=== PATIENT | female | born 1990 | race African-American/Black ===

== ENCOUNTER 2016-12-11 15:15 | Emergency (ER) | payer MEDICAID, OTHER ==
[~2016-12-11] VITALS: Ht 167.6 cm; Wt 75.3 kg
[~2016-12-11 15:15] MED LIST: AMOX500T PO; IBUP-232 PO
[2016-12-11 15:23] VITALS: BP 132/87; PULSE 89; RESP 16; TEMP 98.4; O2SAT 99
[2016-12-11] MEDS ORDERED: MOTR200T4 PO (15:29)
[2016-12-11] MEDS ORDERED: MAGICADU2 SWISH-SWAL (15:38)
[2016-12-11] MEDS ORDERED: IBUP800T23 PO (15:38)
[2016-12-11] MEDS ORDERED: PENI500T PO (15:38)
[2016-12-11] MEDS ORDERED: IBUPROFEN 800 MG TAB PO ONE (15:45)
[2016-12-11] MEDS ORDERED: LIDOCAINE 1%/EPINEPHrine 1:100,000 SOLN 20 ML VIAL INFIL ONE (15:45)
--- NOTE | 2016-12-11 15:45 | PD ---
HPI Chief Complaint: Oral / Dental Pain or Problem Time Seen by Provider: 15:41 Travel History International Travel<30 days: No Contact w/Intl Traveler<30days: No Traveled to known affect area: No History of Present Illness HPI 26-year-old female presents to the ED for evaluation of 2 day history of right lower dental pain. Patient thinks that it is "my wisdom tooth." She endorses dental cavity in the area. The pain radiates to the right ear. She denies fever, chills, difficulties open her mouth, difficulty swallowing her own secretions. She does not have a dentist. She took 600 mg ibuprofen before arrival with no improvement of symptoms. NKDA. PFSH Past Medical History Medical History: Denies Significant Hx Diminished Hearing: No Tetanus Vaccination: > 5 Years Influenza Vaccination: No ?: Not LMP: "NOW" : 3 Para: 1 Miscarriage: 1 Past Surgical History Surgical History: No Previous Surgery Section: Yes Tonsillectomy: Yes Social History Alcohol Use: Yes (OCCASIONAL) Tobacco Use: No Substance Use: No Allergies-Medications (Allergen,Severity, Reaction): Coded Allergies: No Known Allergies (Unverified , 12/11/16) Reported Meds & Prescriptions Reported Meds & Active Scripts Active Ibuprofen 800 Mg Tab 800 Mg PO Q8H Magic Mouthwash Adult Liq (Multi-Ingredient Mouthwash/Gargle) 120 Ml Susp 10 Ml SWISH-SWAL ACHS Each 5mL contains: Nystatin 200,000units, Diphenhydramine 4.25mg, Viscous Lidocaine 10mg, Vernon syrup 0.8 mL Penicillin V Potassium 500 Mg Tab 500 Mg PO Q6H 7 Days Reported Motrin Ib (Ibuprofen) 200 Mg Tab 600 Mg PO Q6H PRN Review of Systems Except as stated in HPI: all other systems reviewed are Neg Physical Exam Narrative GENERAL: Well-nourished, well-developed tearful black female in no acute distress. SKIN: Warm and dry. Mild swelling of the right lower cheek. HEAD: Normocephalic. Atraumatic. EYES: No scleral icterus. No injection or drainage. PERRLA. EOMI. ENT: Pearly weems tympanic membranes bilaterally. Nasal mucosa is moist. Oropharynx without erythema, edema or exudate. Uvula midline. Airway patent. Floor of the mouth is soft. DENTAL: No loose or chipped teeth. No malocclusion. Tooth #32 crowds tooth # 31. Tooth #31 has a dental caries. The surrounding mucosa is erythematous, tender. No fluctuance noted. NECK: Supple, trachea midline. No JVD or lymphadenopathy. CARDIOVASCULAR: Regular rate and rhythm without murmurs, gallops, or rubs. No carotid bruits. 2+ DP and radial pulses bilaterally. RESPIRATORY: Breath sounds clear and equal bilaterally. No accessory muscle use. GASTROINTESTINAL: Abdomen soft, non-tender, nondistended. + Bowel sounds MUSCULOSKELETAL: No cyanosis, or edema. Full, active range of motion. Strength 5/5. Neurovascularly intact. BACK: Nontender without obvious deformity. No CVA tenderness. Data Data Last Documented VS Vital Signs Date Time Temp Pulse Resp B/P Pulse Ox O2 Delivery O2 Flow Rate FiO2 12/11/16 15:23 98.4 89 16 132/87 99 Orders Lidocai-Epi 1%-1:100,000 Inj (Xylocaine- (12/11/16 15:45) MDM Medical Decision Making Medical Screen Exam Complete: Yes Emergency Medical Condition: Yes Differential Diagnosis Dentalgia versus dental caries versus dental abscess versus deep neck space infection versus other Narrative Course 26-year-old female presents to the ED for evaluation of 2 day history of right lower dental pain. Patient thinks that it is "my wisdom tooth." She endorses dental cavity in the area. The pain radiates to the right ear. She denies fever, chills, difficulties open her mouth, difficulty swallowing her own secretions. She does not have a dentist. She took 600 mg ibuprofen before arrival with no improvement of symptoms. Vitals reviewed. Physical exam reveals a nontoxic-appearing, tearful black female in no acute distress. ENT exam is unremarkable. Tooth #2 crowds tooth #31. Tooth #31 is a dental caries. The surrounding mucosa is erythematous and tender. No fluctuance is noted. Patient drove herself to the emergency room and does not have a ride home. I attempted an inferior alveolar dental block and injected approximately 1-1/2 cc of 1% lidocaine with epinephrine into the right pterygomandibular triangle. However, the patient recoiled and swatted my hand away before I was able to complete the injection. She is prescribed 800 mg ibuprofen 3 times a day, Magic mouthwash when necessary and penicillin VK 500 mg 4 times a day 7 days. She indicated understanding of instructions and is agreeable with the care plan. The patient is stable and discharged home. Diagnosis Primary Impression: Dentalgia Additional Impressions: Dental caries Dental abscess Referrals: Dentist Patient Instructions: Dental Abscess (ED), General Instructions Additional Instructions: Rest, hydrate. Take all antibiotics as prescribed, even if symptoms resolve. 800 mg ibuprofen 3 times a day to reduce pain and inflammation. Magic mouthwash as needed for pain. Follow-up with a dentist. Return to the ED for any urgent or emergent medical condition. Med/Other Pt SpecificInfo: Prescription(s) given Scripts Ibuprofen 800 Mg Yps535 Mg PO Q8H #20 TAB Ref 0 Prov:Gavino Ramirez MD 12/11/16 Diunchok-Kitnkuezbnsxxrt-Clbtqbowv Liq (Magic Mouthwash Adult Liq)120 Ml Susp10 Ml SWISH-SWAL ACHS #120 ML Ref 0 Each 5mL contains: Nystatin 200,000units, Diphenhydramine 4.25mg, Viscous Lidocaine 10mg, Vernon syrup 0.8 mL Prov:Gavino Ramirez MD 12/11/16 Penicillin V Potassium 500 Mg Uui439 Mg PO Q6H 7 Days Ref 0 Prov:Gavino Ramirez MD 12/11/16 Disposition: 01 DISCHARGE HOME Condition: Stable Lyndsey Telles Dec 11, 2016 15:45
== END 2016-12-11 16:02 | disposition home or self-care (01) ==
LOC: PHEFT 15:15
DX: K04.7 Periapical abscess without sinus (principal); K08.89 Other specified disorders of teeth and supporting structures; K02.9 Dental caries, unspecified
CPT/HCPCS: 64400

== ENCOUNTER 2017-03-06 14:26 | Emergency (ER) | payer MEDICAID ==
[~2017-03-06] VITALS: Ht 165.1 cm; Wt 78.4 kg
[~2017-03-06 14:26] MED LIST changes: -AMOX500T PO; -IBUP-232 PO; +IBUP800T23 PO; +MAGICADU2 SWISH-SWAL; +MOTR200T4 PO; +PENI500T PO
[2017-03-06 14:45] VITALS: BP 141/74; PULSE 93; RESP 16; TEMP 98.4; O2SAT 98
--- NOTE | 2017-03-06 14:51 | PD ---
HPI Chief Complaint: Abdominal Pain Time Seen by Provider: 14:35 Travel History International Travel<30 days: No Contact w/Intl Traveler<30days: No Traveled to known affect area: No History of Present Illness HPI The patient was seen and examined in the presence of the nurse. This patient complains of some central pelvic cramping. No vaginal discharge or bleeding. No vomiting or fever. She took a home test that was positive. She's missed her last 2 menstrual periods. No alleviating factors. Duration 2 days PFSH Past Medical History Medical History: Denies Significant Hx Diminished Hearing: No Tetanus Vaccination: > 5 Years Influenza Vaccination: No ?: Not : 3 Para: 2 Miscarriage: 0 Past Surgical History Section: Yes Tonsillectomy: Yes Social History Alcohol Use: Yes (OCCASIONAL) Tobacco Use: No Substance Use: No Allergies-Medications (Allergen,Severity, Reaction): Coded Allergies: No Known Allergies (Unverified , 03/06/17) Reported Meds & Prescriptions Reported Meds & Active Scripts Active No Active Prescriptions or Reported Medications Review of Systems General / Constitutional: No: Fever Eyes: No: Visual changes HENT: No: Headaches Cardiovascular: No: Chest Pain or Discomfort Respiratory: No: Shortness of Breath Gastrointestinal: No: Abdominal Pain Genitourinary: Positive: Pelvic Pain, No: Dysuria Musculoskeletal: No: Pain Skin: No Rash Neurologic: No: Weakness Psychiatric: No: Depression Endocrine: No: Polydipsia Hematologic/Lymphatic: No: Easy Bruising Physical Exam Narrative GENERAL: Well-nourished, well-developed patient in no apparent distress. SKIN: Focused skin assessment reveals no rash and nodules. Skin is Warm and dry. HEAD: Atraumatic. Normocephalic. EYES: Pupils equal and round. No scleral icterus. No injection or drainage. ENT: No nasal bleeding or discharge. Mucous membranes pink and moist. NECK: Trachea midline. No JVD. CARDIOVASCULAR: Regular rate and rhythm. No murmur appreciated. RESPIRATORY: No accessory muscle use. Clear to auscultation. Breath sounds equal bilaterally. GASTROINTESTINAL: Abdomen soft, non-tender, nondistended. Hepatic and splenic margins not palpable. MUSCULOSKELETAL: No obvious deformities. No clubbing. No cyanosis. No edema. NEUROLOGICAL: Awake and alert. No obvious cranial nerve deficits. Motor grossly within normal limits. Normal speech. PSYCHIATRIC: Appropriate mood and affect; insight and judgment normal. Pelvic: Cervix closed without cervical motion tenderness. No adnexal mass appreciated. No blood or discharge Data Data Last Documented VS Vital Signs Date Time Temp Pulse Resp B/P Pulse Ox O2 Delivery O2 Flow Rate FiO2 03/06/17 14:48 03/06/17 14:45 98.4 93 16 98 Room Air Orders Urinalysis - C+S If Indicated (03/06/17 14:31) Labs Laboratory Tests Test 03/06/17 14:40 Urine Color YELLOW Urine Turbidity CLEAR Urine pH 7.0 Urine Specific [place] 1.020 Urine Protein NEG mg/dL Urine Glucose (UA) NEG mg/dL Urine Ketones NEG mg/dL Urine Occult Blood NEG Urine Nitrite NEG Urine Bilirubin NEG Urine Leukocyte Esterase NEG Urine WBC 0-2 /hpf Urine Squamous Epithelial 6-8 /hpf Cells Urine Bacteria RARE /hpf Urine Mucus FEW /lpf Microscopic Urinalysis Comment CULT NOT INDICATED MDM Medical Decision Making Medical Screen Exam Complete: Yes Emergency Medical Condition: Yes Medical Record Reviewed: Yes Differential Diagnosis Ectopic, PID, miscarriage Narrative Course I have reviewed the patient's electronic medical record. I did a bedside transabdominal ultrasound which reveals an intrauterine fetus with good heartbeat I have ruled out ectopic . Urinalysis does not show infection Abdomen is soft and benign and nontender No clinical suspicion of emergent intra-abdominal process. She is to call her OB physician when she gets home to set up a follow-up visit and care Diagnosis Primary Impression: Pelvic pain affecting in first trimester, antepartum Additional Instructions: Follow-up with OB physician Med/Other Pt SpecificInfo: Other Scripts No Active Prescriptions or Reported Meds Disposition: 01 DISCHARGE HOME Condition: Stable Gonsalo Yip MD Mar 06, 2017 14:51
[2017-03-06 15:01] LABS: BLOOD, URINE NEG (NEG); GLUCOSE,URINE NEG (NEG); KETONE, URINE NEG (NEG); NITRITE,URINE NEG (NEG)
[2017-03-06 15:14] LABS: BACTERIA, URINE RARE /hpf; COMMENT (UR) CULT NOT INDICATED; CULTURE IF INDICATED CULT NOT INDICATED; MUCUS URINE FEW /lpf (OCC); URINE COLOR YELLOW (YELLW/STRAW); WBC, URINE 0-2 /hpf (0-5)
== END 2017-03-06 15:29 | disposition home or self-care (01) ==
LOC: PHED 14:26
DX: O26.891 Other specified pregnancy related conditions, first trimester (principal); R10.2 Pelvic and perineal pain; Z3A.00 Weeks of gestation of pregnancy not specified
CPT/HCPCS: 81001; 99284

== ENCOUNTER 2017-08-23 20:52 | Emergency (ER) | payer MEDICAID ==
[~2017-08-23] VITALS: Ht 167.6 cm; Wt 90.7 kg
[2017-08-23 21:49] LABS: BILIRUBIN, URINE NEG (NEG); BLOOD, URINE NEG (NEG); GLUCOSE,URINE TRACE mg/dL (NEG); KETONE, URINE NEG (NEG); MUCUS URINE FEW /lpf (OCC); NITRITE,URINE NEG (NEG); PH, URINE 6.5 (5.0-8.5); SQUAMOUS EPITHELIAL CELL URINE 4 /hpf (0-5); URINE COLOR YELLOW (YELLW/STRAW); URINE LEUKOCYTE ESTERASE NEG (NEG)
--- NOTE | 2017-08-23 21:52 | PD ---
HPI Chief Complaint 31 weeks and 3 days vaginal pressure 1 day Date Seen: Aug 23, 2017 Time Seen: 21:38 Travel History International Travel<30 Days: No Contact w/Intl Traveler<30Days: No Known Affected Area: No History of Present Illness HPI Pt is a 27 yo at 31 weeks and 1 day. EDC 10-10-2017. Care with Dr Foreman. Pt c/o vaginal pressure but no pain. Denies dysuria . Active movements. No vaginal bleeding or leaking. No uterine contractions. Pt has low back pain. Weeks Gestation: 31 Para: 2 : 3 History Past Medical History Medical History: Denies Significant Hx Obstetric History Obstetric History C Section x 2 Past Surgical History Narrative Surgical tonsillectomy in childhood. Family History Family History: Negative Social History Alcohol Use: No Tobacco Use: No Substance Abuse: No Allergies-Medications (Allergen,Severity, Reaction): Coded Allergies: No Known Allergies (Unverified Adverse Reaction, Unknown, 08/23/17) Home Meds No Active Prescriptions or Reported Meds Review of Systems Except as stated in HPI: all other systems reviewed are Neg Musculoskeletal: Pain (low back) Physical Exam Narrative GENERAL: Well-nourished, well-developed patient. SKIN: Warm and dry. HEAD: Normocephalic and atraumatic. EYES: No scleral icterus. No injection or drainage. ENT: No nasal drainage noted. Mucous membranes pink. Airway patent. NECK: Supple, trachea midline. No JVD. CARDIOVASCULAR: Regular rate and rhythm without murmurs, gallops, or rubs. RESPIRATORY: Breath sounds equal bilaterally. No accessory muscle use. BREASTS: Bilateral exam showed no masses , no retractions, no nipple discharge. ABDOMEN/GI: Abdomen soft, non-tender, bowel sounds present, no rebound, no guarding Gravid to [31] weeks size Fundal Height: [31cm] GENITOURINARY: External Genitalia: intact and normal in appearance BUS glands: [wnl] Cervix: [soft] Dilatation: [closed] Effacement: [long] Station: [-3] Presentation: [vertex] Membranes: [intact] Uterine Contractions: [none] FHT's: Category: [1] Baseline: [130s] Reactive: [-] Variability: [moderate] Decels: [-] EXTREMITIES: No cyanosis or edema. BACK: Nontender without obvious deformity. No CVA tenderness. NEUROLOGICAL: Awake and alert. Motor and sensory grossly within normal limits. Five out of 5 muscle strength in all muscle groups. Normal speech. Data Data Vital Signs Reviewed: Yes [facility] Medical Record Reviewed: Yes Plan 27 yo at 31 weeks and 1 day. Presents with c/o vaginal pressure. Cervix closed and long. No CVA tenderness. FFN and UA pending UA wnl, fFN wnl. Pt advised to use support brace to relieve pressure on back and pelvis. Diagnosis Diagnosis: Primary Impression: 31 weeks gestation of Additional Impression: Vaginal discomfort Disposition: DISCHARGE HOME Condition: Good Scripts No Active Prescriptions or Reported Meds Marquis Quinn MD Aug 23, 2017 21:52
[2017-09-08] MEDS ORDERED: VENO20IN IV (12:39)
== END 2017-08-23 22:30 | disposition home or self-care (01) ==
LOC: HOBED 20:52
DX: O26.893 Other specified pregnancy related conditions, third trimester (principal); R10.2 Pelvic and perineal pain; M54.5 Low back pain; Z3A.31 31 weeks gestation of pregnancy
CPT/HCPCS: 59025; 81001; 82731

== ENCOUNTER 2017-10-05 10:33 | Inpatient (IN) | payer MEDICAID ==
[2017-10-05] VITALS (18 sets, daily range): BP systolic 91–118; BP diastolic 57–68; PULSE 67–85; RESP 16–20; TEMP 97.4–97.8; O2SAT 96–100
[~2017-10-05] VITALS: Ht 167.6 cm; Wt 92.0 kg
[2017-10-05] MEDS ORDERED: MORPHINE SULFATE PF 5 MG/10 ML VIAL ONE (11:15)
[2017-10-05] MEDS ORDERED: ACETAMINOPHEN 1000 MG/100 ML 100 ML IV ONE (11:15)
[2017-10-05] MEDS ORDERED: LACTATED RINGER'S 1000 ML INJ 1,000 ML IV ONE ×2 (11:33→12:00)
[2017-10-05] MEDS ORDERED: LACTATED RINGER'S 1000 ML IV SCH (11:45)
[2017-10-05] MEDS ORDERED: CITRIC ACID-SODIUM CITRATE LIQ 30 ML UDC PO SCH ×2 (11:45→13:15)
[2017-10-05] MEDS ORDERED: ceFAZolin 2 GM PREMIX 50 ML IV SCH ×2 (11:45→12:45)
[2017-10-05] MEDS ORDERED: LACTATED RINGER'S 1000 ML IV ONE (11:45)
[2017-10-05] MEDS ORDERED: EPINEPHrine HCL (1:1000) 1 MG/ML VIAL IV ONE (12:00)
[2017-10-05] MEDS ORDERED: ONDANSETRON HCL 4 MG/2 ML VIAL IV ONE (12:00)
[2017-10-05] MEDS ORDERED: PHENYLEPH/NS 1000 MCG/10 ML SYR IV ONE (12:00)
[2017-10-05] MEDS ORDERED: DEXAMETHASONE SOD PHOS 4 MG/ML VIAL IV ONE (12:00)
[2017-10-05] MEDS ORDERED: OXYTOCIN 10 UNIT/ML AMP IV ONE (12:00)
[2017-10-05] MEDS ORDERED: LACTATED RINGER'S 1000 ML INJ 1,000 ML IV SCH ×2 (12:03→19:06)
[2017-10-05 12:15] LABS: AUTOMATED NEUTROPHIL # 4.8 TH/MM3 (1.8-7.7); BASOPHIL % 0.2 % (0.0-2.0); EOSINOPHIL % 0.6 % (0.0-4.0); HEMATOCRIT 35.7 % (35.0-46.0); HEMOGLOBIN 11.7 GM/DL (11.6-15.3); LYMPH % 22.8 % (9.0-44.0); LYMPHOCYTE # 1.6 TH/MM3 (1.0-4.8); MEAN CELL VOLUME 70.2 FL (80.0-100.0); MEAN CORPUSCULAR HEMOGLOBIN 23.1 PG (27.0-34.0); MEAN CORPUSCULAR HGB CONC 32.9 % (32.0-36.0); MEAN PLATELET VOLUME 8.9 FL (7.0-11.0); MONO % 8.1 % (0.0-8.0); MONOCYTE # 0.6 TH/MM3 (0-0.9); NEUT % 68.3 % (16.0-70.0); PLATELET COUNT 167 TH/MM3 (150-450); RED BLOOD COUNT 5.08 MIL/MM3 (4.00-5.30); RED CELL DISTRIBUTION WIDTH 28.2 % (11.6-17.2)
--- NOTE | 2017-10-05 12:21 | HHI.HP ---
HPI Chief Complaint Repeat . Date Seen: Oct 05, 2017 Travel History International Travel<30 Days: No Contact w/Intl Traveler<30Days: No Known Affected Area: No History of Present Illness HPI Patient is a 27 year old at 39-2/7 weeks gestation who presents today for repeat . She is starting to feel contractions but denies any vaginal bleeding, discharge, gush or leaking of fluid. Positive movement. History Past Medical History Medical History: Denies Significant Hx Obstetric History Obstetric History x 2 Past Surgical History Narrative Surgical x 2 Tonsillectomy Family History Family History: Negative Social History Alcohol Use: No Tobacco Use: No Substance Abuse: No Allergies-Medications (Allergen,Severity, Reaction): Coded Allergies: No Known Allergies (Verified Allergy, Unknown, 09/08/17) Review of Systems Except as stated in HPI: all other systems reviewed are Neg General / Constitutional: No: Fever, Chills Eyes: No: Blurred Vision, Visual changes HENT: No: Headaches Cardiovascular: No: Chest Pain or Discomfort Respiratory: No: Cough, Short of Breath Gastrointestinal: No: Nausea, Vomiting, Abdominal Pain Genitourinary: Pelvic Pain, No: Dysuria, Hematuria, Discharge, Vaginal Bleeding Musculoskeletal: No: Edema Neurologic: No: Headache Psychiatric: No: Substance Abuse Physical Exam Narrative GENERAL: Well-nourished, well-developed patient. SKIN: Warm and dry. HEAD: Normocephalic and atraumatic. EYES: No scleral icterus. No injection or drainage. ENT: No nasal drainage noted. Mucous membranes pink. Airway patent. NECK: Supple, trachea midline. No JVD. CARDIOVASCULAR: Regular rate and rhythm without murmurs, gallops, or rubs. RESPIRATORY: Breath sounds equal bilaterally. No accessory muscle use. ABDOMEN/GI: Abdomen soft, non-tender, bowel sounds present, no rebound, no guarding Gravid to 39 weeks size GENITOURINARY: Uterine Contractions: q3-5min FHT's: Category: I Baseline: 140 Reactive: + Variability: moderate Decels: none EXTREMITIES: No cyanosis or edema. BACK: Nontender without obvious deformity. No CVA tenderness. NEUROLOGICAL: Awake and alert. Motor and sensory grossly within normal limits. Normal speech. Caprini VTE Risk Assessment Caprini VTE Risk Assessment: No/Low Risk (score <= 1) Caprini Risk Assessment Model Point Value = 1 Point Value = 2 Point Value = 3 Point Value = 5 Age 41-60 Minor surgery BMI > 25 kg/m2 Swollen legs Varicose veins or History of unexplained or recurrent spontaneous Oral contraceptives or hormone replacement Sepsis (< 1 month) Serious lung disease, including pneumonia (< 1 month) Abnormal pulmonary function Acute myocardial infarction Congestive heart failure (< 1 month) History of inflammatory bowel disease Medical patient at bed rest Age 61-74 Arthroscopic surgery Major open surgery (> 45 min) Laparoscopic surgery (> 45 min) Malignancy Confined to bed (> 72 hours) Immobilizing plaster cast Central venous access Age >= 75 History of VTE Family history of VTE Factor V Leiden Prothrombin [id number] Lupus anticoagulant Anticardiolipin antibodies Elevated serum homocysteine Heparin-induced thrombocytopenia Other congenital or acquired thrombophilia Stroke (< 1 month) Elective arthroplasty Hip, pelvis, or leg fracture Acute spinal cord injury (< 1 month) Prophylaxis Regimen Total Risk Factor Score Risk Level Prophylaxis Regimen 0-1 Low Early ambulation 2 Moderate Order ONE of the following: *Sequential Compression Device (SCD) *Heparin 5000 units SQ BID 3-4 Higher Order ONE of the following medications: *Heparin 5000 units SQ TID *Enoxaparin/Lovenox 40 mg SQ daily (WT < 150 kg, CrCl > 30 mL/min) *Enoxaparin/Lovenox 30 mg SQ daily (WT < 150 kg, CrCl > 10-29 mL/min) *Enoxaparin/Lovenox 30 mg SQ BID (WT < 150 kg, CrCl > 30 mL/min) AND/OR *Sequential Compression Device (SCD) 5 or more Highest Order ONE of the following medications: *Heparin 5000 units SQ TID (Preferred with Epidurals) *Enoxaparin/Lovenox 40 mg SQ daily (WT < 150 kg, CrCl > 30 mL/min) *Enoxaparin/Lovenox 30 mg SQ daily (WT < 150 kg, CrCl > 10-29 mL/min) *Enoxaparin/Lovenox 30 mg SQ BID (WT < 150 kg, CrCl > 30 mL/min) AND *Sequential Compression Device (SCD) Data Data Vital Signs Reviewed: Yes Orders Orders Morphine Pf Inj (Duramorph Pf 0.5 Mg/Ml (10/05/17 11:15) Acetaminophen 1000 Mg/100 Ml (Ofirmev 10 (10/05/17 11:15) Lactated Ringer's 1000 Ml Inj (Lr 1000 M (10/05/17 11:45) Lactated Ringer's 1000 Ml Inj (Lr 1000 M (10/05/17 11:45) Citric Acid-Sodium Citrate Liq (Bicitra (10/05/17 11:45) Admit To Inpatient (10/05/17 ) Code Status (10/05/17 11:33) Vital Signs (Adult) .ON ADMISSION (10/05/17 11:33) Activity Oob Ad Radha (10/05/17 11:33) Heart (10/05/17 11:33) Urinary Catheter Management STACI.Q8H (10/05/17 11:33) ^ Preps (10/05/17 11:33) Cefazolin 2 Gm Premix (Ancef 2 Gm Premix (10/05/17 11:45) Scd / Neil / Foot Pump STACI.QSHIFT (10/05/17 11:33) ^ Ultrasound For Locatio (10/05/17 11:33) Diet Npo (10/05/17 Lunch) Lactated Ringer's 1000 Ml Inj (Lr 1000 M (10/05/17 11:33) Lactated Ringer's 1000 Ml Inj (Lr 1000 M (10/05/17 12:03) Cefazolin 2 Gm Premix (Ancef 2 Gm Premix (10/05/17 12:45) Citric Acid-Sodium Citrate Liq (Bicitra (10/05/17 13:15) Type And Screen (10/05/17 11:33) Complete Blood Count With Diff (10/05/17 11:33) Urinalysis - C+S If Indicated (10/05/17 11:33) Drug Screen, Random Urine (10/05/17 11:33) Inpatient Certification (10/05/17 ) Specimen To Be Collected PRN (10/05/17 11:33) Specimen To Be Collected PRN (10/05/17 11:33) Group B Strep: Positive Labs Laboratory Tests Test 10/05/17 11:00 10/05/17 11:33 White Blood Count 7.0 Red Blood Count 5.08 Hemoglobin 11.7 Hematocrit 35.7 Mean Corpuscular Volume 70.2 Mean Corpuscular Hemoglobin 23.1 Mean Corpuscular Hemoglobin Concent 32.9 Red Cell Distribution Width 28.2 Platelet Count 167 Mean Platelet Volume 8.9 Neutrophils (%) (Auto) 68.3 Lymphocytes (%) (Auto) 22.8 Monocytes (%) (Auto) 8.1 Eosinophils (%) (Auto) 0.6 Basophils (%) (Auto) 0.2 Neutrophils # (Auto) 4.8 Lymphocytes # (Auto) 1.6 Monocytes # (Auto) 0.6 Eosinophils # (Auto) 0.0 Basophils # (Auto) 0.0 CBC Comment AUTO DIFF Assessment/Plan Assessment and Plan 27 year old at 39-2/7 weeks gestation. 1. IUP- Category I tracing, reassuring. 2. Repeat - previous x 2 3. GBS positive dw Gretchen Medrano MD, R3 Oct 05, 2017 12:21
[2017-10-05 12:24] LABS: BILIRUBIN, URINE NEG (NEG); BLOOD, URINE NEG (NEG); GLUCOSE,URINE NEG (NEG); KETONE, URINE 40 mg/dL (NEG); MUCUS URINE FEW /lpf (OCC); NITRITE,URINE NEG (NEG); SQUAMOUS EPITHELIAL CELL URINE 4 /hpf (0-5); URINE COLOR YELLOW (YELLW/STRAW); URINE LEUKOCYTE ESTERASE TRACE (NEG)
[2017-10-05] MEDS ORDERED: EPIDURAL-DIPHENHYDRAMINE HCL 50 MG/ML VIAL IV PUSH PRN (12:38)
[2017-10-05] MEDS ORDERED: EPIDURAL-DIPHENHYDRAMINE HCL 50 MG CAP PO PRN (12:38)
[2017-10-05] MEDS ORDERED: EPIDURAL-NALOXONE HCL 0.4 MG/ML AMP IV PUSH PRN (12:38)
[2017-10-05] MEDS ORDERED: EPIDURAL-DO NOT ADMINISTER ANTICOAGULANTS PRN (12:38)
[2017-10-05] MEDS ORDERED: EPIDURAL-NO SYSTEMIC NARCOTICS PRN (12:38)
[2017-10-05 12:52] LABS: OVALOCYTES 1+ (NORMAL); TEARDROP RBCS 1+ (NORMAL)
[2017-10-05 12:53] LABS: ACANTHOCYTES OCC (NORMAL)
[2017-10-05] MEDS: ACETAMINOPHEN 1000 MG/100 ML 100 ML IV SCH ×2 (13:00→20:47)
[2017-10-05] MEDS ORDERED: OXYTOCIN 30 UNITS-500ML PREMIX 500 ML IV ONE (14:15)
[2017-10-05] MEDS ORDERED: ZOLPIDEM TARTRATE 5 MG TAB PO PRN (14:15)
[2017-10-05] MEDS ORDERED: ONDANSETRON HCL 4 MG/2 ML VIAL IV PUSH PRN (14:15)
[2017-10-05] MEDS ORDERED: ACETAMINOPHEN 325 MG TAB PO PRN (14:15)
[2017-10-05] MEDS ORDERED: SODIUM CHLORIDE 0.9% FLUSH 10 ML FLUSH IV FLUSH PRN (14:15)
[2017-10-05] MEDS ORDERED: IBUPROFEN 600 MG TAB PO PRN (14:15)
--- NOTE | 2017-10-05 14:20 | PD.OP ---
Operative Report Date of Surgery: Oct 05, 2017 Preoperative Diagnosis: Postoperative Diagnosis: Procedure: Repeat Low Transverse Section Anesthesia: Spinal Surgeon: Edgar Foreman Production Estimator(s): Jessica Juan and Lalitha Rogers Resident Surgeon: Gretchen Liu Operation and Findings: PREOPERATIVE DIAGNOSIS 1. Intrauterine at 39-2/7 weeks gestation. 2. Repeat Section POSTOPERATIVE DIAGNOSIS 1. Intrauterine at 39-2/7 weeks gestation. 2. Repeat Section PROCEDURE Repeat low transverse section. FINDINGS: male weighing 3760g. Apgars 8/8. Normal fallopian tubes, ovaries, and uterus. ANESTHESIA Spinal. SURGEON Edgar Foreman MD CO-SURGEON Olimpia Liu MD, R3 COMPLICATIONS None. COUNTS Correct. ESTIMATED BLOOD LOSS 600 cc. FLUIDS Crystalloids. CONDITION The patient tolerated the procedure well and went to the recovery room in good condition. PROCEDURE IN DETAIL Under an adequate level of anesthesia, she was prepped and draped for abdominal surgery. The previous scar was removed with a Pfannenstiel incision and carried down to the fascia. The fascia was taken off the rectus muscle by blunt and sharp dissection. The rectus muscles were spread bluntly and the peritoneum was entered under direct vision without difficulty. The incision was extended with care to avoid the urinary bladder. A bladder blade was placed and a bladder flap created in the usual fashion. The uterine incision was made in a transverse manner along the lower uterine segment which was well-developed. It was taken down in the midline until the intrauterine cavity was entered. A mild amount of clear fluid was noted. The head was grasped fundal pressure applied. A Kiwi vacuum was used to assist with delivery of the head and the head was delivered without difficulty. The rest of the body was delivered without complications. The cord was doubly clamped and cut after 45 seconds of delayed cord clamping and the infant handed to the resuscitation team present. The placenta was delivered manually. The uterus was curettaged twice with a wet lap. The uterine incision was then repaired with 0 Vicryl in a running locking fashion, with the second layer imbricating the first. A uterine artery branch was found to be bleeding and was ligated with several sutures. Hemostasis was excellent. The cul-de-sac and gutters were cleaned of blood and debris. The uterus was delivered back into the abdomen. The rectus muscles were reapproximated with 0 Vicryl in a running fashion. The fascia was repaired from lateral to midline with 0 Vicryl and the subcu was repaired with 3-0 Vicryl. The skin was repaired with a 4-0 Monocryl in a subcuticular manner. The wound was sterilely dressed with a pressure dressing. She tolerated the procedure well and went to the recovery room in satisfactory condition. Gretchen Liu MD, R3 Oct 05, 2017 14:20
[2017-10-05] MEDS ORDERED: OXYTOCIN 30 UNITS-500ML PREMIX 500 ML ONE (15:17)
[2017-10-05] MEDS ORDERED: KETOROLAC TROMETHAMINE 30 MG/ML (IVP) VIAL IV PUSH ONE ×2 (18:45→22:45)
[2017-10-05] MEDS: SODIUM CHLORIDE 0.9% FLUSH 10 ML FLUSH IV FLUSH SCH (20:24)
[2017-10-06] VITALS: BP 108/69; PULSE 64; RESP 18; TEMP 97.9; O2SAT 96
[2017-10-06] MEDS ORDERED: OXYTOCIN 30 UNITS-500ML PREMIX 500 ML IV PRN (00:15)
[2017-10-06 04:00] VITALS: BP 109/67; PULSE 70; RESP 18; TEMP 98.2; O2SAT 100
[2017-10-06] MEDS: ACETAMINOPHEN 1000 MG/100 ML 100 ML IV SCH (05:39)
[2017-10-06 06:12] LABS: AUTOMATED NEUTROPHIL # 8.3 TH/MM3 (1.8-7.7); BASOPHIL % 0.1 % (0.0-2.0); EOSINOPHIL % 0.3 % (0.0-4.0); HEMATOCRIT 31.2 % (35.0-46.0); LYMPH % 17.7 % (9.0-44.0); MEAN CELL VOLUME 71.2 FL (80.0-100.0); MEAN CORPUSCULAR HEMOGLOBIN 22.8 PG (27.0-34.0); MEAN PLATELET VOLUME 9.6 FL (7.0-11.0); MONO % 9.6 % (0.0-8.0); MONOCYTE # 1.1 TH/MM3 (0-0.9); NEUT % 72.3 % (16.0-70.0); PLATELET COUNT 156 TH/MM3 (150-450); RED BLOOD COUNT 4.39 MIL/MM3 (4.00-5.30); RED CELL DISTRIBUTION WIDTH 28.1 % (11.6-17.2); WHITE BLOOD COUNT 11.5 TH/MM3 (4.0-11.0)
[2017-10-06 08:00] VITALS: BP 107/71; PULSE 71; RESP 16; TEMP 97.8; O2SAT 99
[2017-10-06 08:05] LABS: OVALOCYTES 1+ (NORMAL); TEARDROP RBCS 1+ (NORMAL)
[2017-10-06 08:06] LABS: ACANTHOCYTES OCC (NORMAL); BURR CELLS 1+ (NORMAL)
[2017-10-06] MEDS ORDERED: OXYC1TAB63 PO (08:22)
[2017-10-06] MEDS ORDERED: IBUP-232 PO (08:22)
--- NOTE | 2017-10-06 08:37 | HHI.OB ---
Subjective Post Operative Day: 1 Objective Vitals/I&O Vital Signs Date Time Temp Pulse Resp B/P (MAP) Pulse Ox O2 Delivery O2 Flow Rate FiO2 10/06/17 04:00 98.2 70 18 109/67 (81) 100 10/06/17 00:00 64 18 108/69 (82) 96 10/06/17 00:00 97.9 10/05/17 23:00 18 10/05/17 22:00 20 10/05/17 21:00 16 10/05/17 20:30 70 112/68 (83) 10/05/17 20:30 97.8 18 96 10/05/17 20:00 16 10/05/17 19:00 18 10/05/17 16:13 97.6 69 16 111/61 (78) 10/05/17 15:30 72 18 98 10/05/17 15:30 111/60 (77) 10/05/17 15:23 97.5 10/05/17 15:18 104/66 (79) 10/05/17 15:16 67 18 98 10/05/17 15:16 91/64 (73) 10/05/17 15:09 97.5 10/05/17 15:01 100 10/05/17 15:01 70 18 110/62 (78) 10/05/17 14:48 97.4 10/05/17 14:45 70 16 118/57 (77) 100 10/05/17 14:30 73 16 118/58 (78) 100 10/05/17 14:14 16 99 10/05/17 14:14 79 118/63 (81) 10/05/17 14:00 97.6 16 100 10/05/17 14:00 85 106/59 (75) Result Diagram: 10/06/17 0525 Objective Remarks GENERAL: Well-nourished, well-developed patient. CARDIOVASCULAR: Regular rate and rhythm without murmurs, gallops, or rubs. RESPIRATORY: Breath sounds equal bilaterally. No accessory muscle use. ABDOMEN/GI: Abdomen soft, non-tender, bowel sounds present. Incision: dressing, Clean, dry and intact. Fundus: Firm, non-tender at umbilicus. GENITOURINARY: Light to moderate bleeding. EXTREMITIES: No cyanosis or edema, non-tender, without signs of DVT. Medications and IVs Current Medications Medications (Trade) Dose Ordered Sig/Elyse Route Start Time Stop Time Status Last Admin Lactated Ringer's 2,000 ml @ 100 mls/hr Q20H IV 10/05/17 19:06 10/06/17 15:05 10/05/17 20:47 Oxytocin 500 ml @ 100 mls/hr UNSCH X1 PRN IV 10/06/17 00:15 10/07/17 00:14 (NS Flush) 2 ml BID IV FLUSH 10/05/17 21:00 (NS Flush) 2 ml UNSCH PRN IV FLUSH 10/05/17 14:15 (Mylicon Chew) 80 mg QID PRN PO 10/05/17 14:15 (Tylenol) 650 mg Q6H PRN PO 10/05/17 14:15 (Percocet 5-325 Mg) 1 tab Q4H PRN PO 10/05/17 14:15 (Percocet 5-325 Mg) 2 tab Q4H PRN PO 10/05/17 14:15 (Wendi-Colace) 2 tab Q12H PRN PO 10/05/17 14:15 (Ambien) 5 mg HS PRN PO 10/05/17 14:15 (M-M-R Ii Inj) 0.5 ml ONCE ONCE SQ 10/06/17 16:00 10/06/17 16:01 (Boostrix Inj) 0.5 ml ONCE ONCE IM 10/06/17 16:00 10/06/17 16:01 (Zofran Inj) 4 mg Q6H PRN IV PUSH 10/05/17 14:15 Miscellaneous Information NO SYSTEMIC NARCOTICS TO BE GIVEN FO... UNSCH PRN .XX 10/05/17 12:38 10/06/17 12:37 (Narcan Inj) 0.4 mg UNSCH PRN IV PUSH 10/05/17 12:38 10/06/17 12:37 (Benadryl Inj) 25 mg Q6H PRN IV PUSH 10/05/17 12:38 10/06/17 12:37 10/05/17 21:16 (Benadryl) 50 mg Q6H PRN PO 10/05/17 12:38 10/06/17 12:37 Miscellaneous Information ALL NURSING DEPARTMENTS UNSCH PRN .XX 2/8/18 12:38 10/06/17 12:37 (Motrin) 600 mg Q6H PRN PO 10/05/17 23:00 Assessment/Plan Problem List: (1) Anemia ICD Codes: D64.9 - Anemia, unspecified (2) S/P repeat low transverse ICD Codes: Z98.891 - History of uterine scar from previous surgery Assessment and Plan POD#1 repeat c section pt doing well pain well managed with oral pain medication up to shower routine care zara Foreman Discharge Planning dc in 1-2 days Tayler Young Oct 06, 2017 08:37
[2017-10-06] MEDS: DOCUSATE SODIUM 50 MG/SENNA 8.6 MG TAB PO PRN (10:52)
[2017-10-06] MEDS: IBUPROFEN 600 MG TAB PO PRN ×3 (10:52→23:48)
[2017-10-06] MEDS: oxyCODONE/ACETAMINOPHEN 5 MG/325 MG TAB PO PRN ×3 (10:53→23:48)
[2017-10-06] MEDS ORDERED: MEASLES, MUMPS, RUBELLA VACCINE 0.5 ML VIAL SQ ONE (16:00)
[2017-10-06] MEDS ORDERED: DIPHTH/TETANUS/ACEL PERTUSSIS (BOOSTER) 0.5 ML VIAL/PFS IM ONE (16:00)
[2017-10-06 20:00] VITALS: BP 119/67; PULSE 76; RESP 18; TEMP 97.8; O2SAT 99
[2017-10-06] MEDS: SODIUM CHLORIDE 0.9% FLUSH 10 ML FLUSH IV FLUSH SCH (21:12)
[2017-10-06] MEDS: SIMETHICONE 80 MG CHEWABLE TAB PO PRN (23:44)
[2017-10-07] MEDS: IBUPROFEN 600 MG TAB PO PRN ×3 (07:08→19:42)
[2017-10-07] MEDS: DOCUSATE SODIUM 50 MG/SENNA 8.6 MG TAB PO PRN (07:09)
[2017-10-07] MEDS: oxyCODONE/ACETAMINOPHEN 5 MG/325 MG TAB PO PRN ×3 (07:09→19:43)
[2017-10-07 08:00] VITALS: BP 116/69; PULSE 18; RESP 18; TEMP 97.9; O2SAT 98
[2017-10-07] MEDS: SIMETHICONE 80 MG CHEWABLE TAB PO PRN ×3 (08:08→23:16)
--- NOTE | 2017-10-07 09:24 | HHI.OB ---
Subjective Post Operative Day: 2 Remarks Uterua painful but walking discharge preferred Monday baby to be circumcised monday with Dr. Foreman Objective Vitals/I&O Vital Signs Date Time Temp Pulse Resp B/P (MAP) Pulse Ox O2 Delivery O2 Flow Rate FiO2 10/07/17 08:00 18 116/69 (85) 10/07/17 08:00 97.9 18 98 10/06/17 20:00 97.8 76 18 119/67 (84) 99 Result Diagram: 10/06/17 0525 Objective Remarks GENERAL: Well-nourished, well-developed patient. CARDIOVASCULAR: Regular rate and rhythm without murmurs, gallops, or rubs. RESPIRATORY: Breath sounds equal bilaterally. No accessory muscle use. ABDOMEN/GI: Abdomen soft, non-tender, bowel sounds present. Incision: dressing, Clean, dry and intact. Fundus: Firm, non-tender at umbilicus. GENITOURINARY: Light to moderate bleeding. EXTREMITIES: No cyanosis or edema, non-tender, without signs of DVT. Medications and IVs Current Medications Medications (Trade) Dose Ordered Sig/Elyse Route Start Time Stop Time Status Last Admin (NS Flush) 2 ml BID IV FLUSH 10/05/17 21:00 (NS Flush) 2 ml UNSCH PRN IV FLUSH 10/05/17 14:15 (Mylicon Chew) 80 mg QID PRN PO 10/05/17 14:15 10/07/17 08:08 (Tylenol) 650 mg Q6H PRN PO 10/05/17 14:15 (Percocet 5-325 Mg) 1 tab Q4H PRN PO 10/05/17 14:15 10/06/17 10:53 (Percocet 5-325 Mg) 2 tab Q4H PRN PO 10/05/17 14:15 10/07/17 07:09 (Wendi-Colace) 2 tab Q12H PRN PO 10/05/17 14:15 10/07/17 07:09 (Ambien) 5 mg HS PRN PO 10/05/17 14:15 (Zofran Inj) 4 mg Q6H PRN IV PUSH 10/05/17 14:15 (Motrin) 600 mg Q6H PRN PO 10/05/17 23:00 10/07/17 07:08 Assessment/Plan Problem List: (1) Anemia ICD Codes: D64.9 - Anemia, unspecified (2) S/P repeat low transverse ICD Codes: Z98.891 - History of uterine scar from previous surgery Assessment and Plan POD#1 repeat c section pt doing well pain well managed with oral pain medication up to shower routine care dw Dr. Foreman POD#2 s/p R C/S no issues antitipate discharge Monday Discharge Planning dc in 1-2 days Milagro Hill MD Oct 07, 2017 09:24
[2017-10-07 19:09] VITALS: BP 119/75; PULSE 77; RESP 16; TEMP 98.5; O2SAT 100
[2017-10-07] MEDS: SODIUM CHLORIDE 0.9% FLUSH 10 ML FLUSH IV FLUSH SCH (21:00)
[2017-10-08] MEDS: IBUPROFEN 600 MG TAB PO PRN ×2 (02:47→09:17)
[2017-10-08] MEDS: oxyCODONE/ACETAMINOPHEN 5 MG/325 MG TAB PO PRN (08:09)
[2017-10-08 08:13] VITALS: BP 125/70; PULSE 70; TEMP 98
[2017-10-08 08:14] VITALS: RESP 16; O2SAT 98
[2017-10-08] MEDS: SODIUM CHLORIDE 0.9% FLUSH 10 ML FLUSH IV FLUSH SCH (09:00)
[2017-10-08] MEDS: DOCUSATE SODIUM 50 MG/SENNA 8.6 MG TAB PO PRN (09:17)
[2017-10-08] MEDS: SIMETHICONE 80 MG CHEWABLE TAB PO PRN (09:18)
--- NOTE | 2017-10-08 11:35 | HHI.OB ---
Subjective Post Operative Day: 3 Remarks doing well Objective Vitals/I&O Vital Signs Date Time Temp Pulse Resp B/P (MAP) Pulse Ox O2 Delivery O2 Flow Rate FiO2 10/08/17 08:14 16 98 10/08/17 08:13 98.0 10/08/17 08:13 70 125/70 (88) 10/08/17 03:47 17 10/07/17 19:09 98.5 77 16 119/75 (90) 100 Result Diagram: 10/06/17 0525 Objective Remarks GENERAL: Well-nourished, well-developed patient. CARDIOVASCULAR: Regular rate and rhythm without murmurs, gallops, or rubs. RESPIRATORY: Breath sounds equal bilaterally. No accessory muscle use. ABDOMEN/GI: Abdomen soft, non-tender, bowel sounds present. Incision: dressing, Clean, dry and intact. Fundus: Firm, non-tender at umbilicus. GENITOURINARY: Light to moderate bleeding. EXTREMITIES: No cyanosis or edema, non-tender, without signs of DVT. Medications and IVs Current Medications Medications (Trade) Dose Ordered Sig/Elyse Route Start Time Stop Time Status Last Admin (NS Flush) 2 ml BID IV FLUSH 10/05/17 21:00 (NS Flush) 2 ml UNSCH PRN IV FLUSH 10/05/17 14:15 (Mylicon Chew) 80 mg QID PRN PO 10/05/17 14:15 10/08/17 09:18 (Tylenol) 650 mg Q6H PRN PO 10/05/17 14:15 (Percocet 5-325 Mg) 1 tab Q4H PRN PO 10/05/17 14:15 10/07/17 13:24 (Percocet 5-325 Mg) 2 tab Q4H PRN PO 10/05/17 14:15 10/08/17 08:09 (Wendi-Colace) 2 tab Q12H PRN PO 10/05/17 14:15 10/08/17 09:17 (Ambien) 5 mg HS PRN PO 10/05/17 14:15 (Zofran Inj) 4 mg Q6H PRN IV PUSH 10/05/17 14:15 (Motrin) 600 mg Q6H PRN PO 10/05/17 23:00 10/08/17 09:17 Assessment/Plan Problem List: (1) Anemia ICD Codes: D64.9 - Anemia, unspecified (2) S/P repeat low transverse ICD Codes: Z98.891 - History of uterine scar from previous surgery Assessment and Plan POD# s/p R C/S no issues antitipate discharge Monday Octavia Laboy MD Oct 08, 2017 11:35
--- NOTE | 2017-10-08 11:36 | HHI.DCPOC ---
Discharge Care Plan Diagnosis: (1) S/P repeat low transverse Your Health Problems Are: delivery Report Symptoms to Your Doctor -Temperature above 100.5 degrees -Redness, of incision or excessive or foul smelling drainage -Unusual pain or calf pain -Increased vaginal bleeding -Painful or difficulty urinating -Feelings of extreme sadness or anxiety after 2 weeks Goals to Promote Your Health * To prevent worsening of your condition and complications * To maintain your health at the optimal level Directions to Meet Your Goals Take your medications as prescribed Follow your dietary instruction Follow activity as directed Ensure plenty of rest for recovery Drink fluids for hydration Keep your appointments as scheduled Take your immunizations and boosters as scheduled If your symptoms worsen call your PCP, if no PCP go to Urgent Care Center or Emergency Room Smoking is Dangerous to Your Health. Avoid second hand smoke Call the 24-hour crisis hotline for domestic abuse at Octavia Laboy MD Oct 08, 2017 11:36
== END 2017-10-08 14:57 | disposition home or self-care (01) | DRG 766 ==
LOC: H2EB 10:33 → H1EA 15:52
PROVIDERS: ADMIT Obstetrics & Gynecology; ATTEND Obstetrics & Gynecology
PROC: 10D00Z1 Extraction of Products of Conception, Low, Open Approach (ICD-10-PCS; principal; 2017-10-05)
PROC: 04LY0ZZ Occlusion of Lower Artery, Open Approach (ICD-10-PCS; 2017-10-05)
DX: O34.211 Maternal care for low transverse scar from previous cesarean delivery (principal); D64.9 Anemia, unspecified; O67.8 Other intrapartum hemorrhage; O99.824 Streptococcus B carrier state complicating childbirth; O99.02 Anemia complicating childbirth; Z37.0 Single live birth; Z3A.39 39 weeks gestation of pregnancy
CPT/HCPCS: 59025; 80307; 81001; 85025; 85461; 86077; 86850; 86870; 86900; 86901; 86902; 86920; 86922; 90384; J0131; J0171; J0690; J1100; J1200; J1885; J2274; J2370; J2405; J2590; J2790; J7120